=== PATIENT | male | born 1975 | race Caucasian/White ===

== ENCOUNTER 2017-09-24 10:48 | Emergency (ER) | payer BC ==
[2017-09-24] MEDS ORDERED: NS 1,000 ML IV ONE ×2 (11:31)
[2017-09-24] MEDS ORDERED: ONDANSETRON 4 MG/2 ML VIAL IVP ONE (11:31)
--- NOTE | 2017-09-24 12:05 | EDPHY ---
H & P Stated Complaint: N/V/D SINCE FRIDAY NIGHT. Time Seen by Provider: 09/24/17 11:24 HPI/ROS: Chief Complaint: Nausea vomiting and diarrhea HPI: Healthy 42-year-old male with 2 days of nausea vomiting and diarrhea. Patient states that symptoms began with nausea and vomiting on Friday night. He then developed frequent loose stools over the course of yesterday and this morning. He has been unable to keep any fluids down. Has not had any pain. No coffee grounds or blood in his vomit. No dark tarry stools or blood in his diarrhea. Has not been on any recent antibiotics. No recent travel. His son did have GI type symptoms last week. No fevers or chills. ROS: 10 point Review of Systems is negative except as noted in the HPI. PMH: Denies Social History: No smoking, occasional alcohol, no recreational drug use Family History: non-contributory Physical Exam: Gen: Awake, Alert, No Distress HEENT: Nose: no rhinorrhea Eyes: PERRLA, EOMI Mouth: Dry mucous membranes Neck: Supple, no JVD Chest: nontender, lungs clear to auscultation Heart: S1, S2 normal, no murmur Abd: Soft, non-tender, no guarding Back: no CVA tenderness, no midline tenderness Ext: no edema, non-tender Skin: no rash Neuro: CN II-XII intact, Sensation grossly intact, Strength 5/5 in bilateral upper and lower extremities - Personal History Current Tetanus Diphtheria and Acellular Pertussis (TDAP): Yes Tetanus Vaccine Date: 2014 - Medical/Surgical History Hx Asthma: No Hx Chronic Respiratory Disease: No Hx Diabetes: No Hx Cardiac Disease: No Hx Renal Disease: No Hx Cirrhosis: No Hx Alcoholism: No Hx HIV/AIDS: No Hx Splenectomy or Spleen Trauma: No Other PMH: appy, hernia surgery, kidney stones. - Social History Smoking Status: Never smoked Constitutional: Initial Vital Signs Temperature (C) 36.7 C 09/24/17 11:02 Heart Rate 106 H 09/24/17 11:02 Respiratory Rate 16 09/24/17 11:02 Blood Pressure 130/93 H 09/24/17 11:02 O2 Sat (%) 92 09/24/17 11:02 O2 Delivery Mode Room Air Allergies/Adverse Reactions: No Known Allergies Allergy (Unverified 08/20/15 11:20) Home Medications: Medication Instructions Recorded Allopurinol 08/20/15 HCTZ (RX) 08/20/15 Potassium Citrate 08/20/15 Ondansetron Odt [Zofran Odt 4 mg 4 mg PO Q4 PRN #10 tab 09/24/17 (*)] Medical Decision Making - Data Points Medications Given: Discontinued Medications Sodium Chloride (Ns) 1,000 mls @ 0 mls/hr IV ONCE ONE; Wide Open PRN Reason: Protocol Stop: 09/24/17 11:32 Last Admin: 09/24/17 11:15 Dose: 1,000 mls Sodium Chloride (Ns) 1,000 mls @ 0 mls/hr IV ONCE ONE; Wide Open PRN Reason: Protocol Stop: 09/24/17 11:32 Last Admin: 09/24/17 11:58 Dose: 1,000 mls Ondansetron HCl (Zofran) 4 mg IVP EDNOW ONE Stop: 09/24/17 11:32 Last Admin: 09/24/17 11:39 Dose: 4 mg Departure - Departure Disposition: Home, Routine, Self-Care Clinical Impression: Acute gastroenteritis Condition: Good Instructions: Dehydration (ED), Gastroenteritis (ED), Acute Nausea and Vomiting (ED) Additional Instructions: You may take Zofran as needed every 6-8 hours for nausea and vomiting. Make sure to drink plenty of fluids, Pedialyte is the best for replacing her electrolytes. Return to the emergency department for uncontrolled nausea or vomiting, inability to keep any fluids down. Abdominal pain. Or any other concerns. Referrals: Jing Cohen DO [Doctor of Osteopathy] - As per Instructions Prescriptions: Ondansetron Odt [Zofran Odt 4 mg (*)] 4 mg PO Q4 PRN #10 tab PRN Reason: nausea
[2017-09-24 12:51] VITALS: BP 137/62
== END 2017-09-24 12:47 | disposition home or self-care (01) ==
LOC: CED 10:48
DX: K52.9 Noninfective gastroenteritis and colitis, unspecified (principal); E86.9 Volume depletion, unspecified
CPT/HCPCS: 96374; J2405